=== PATIENT | male | born 2000 | race Two or more races ===

== ENCOUNTER 2023-10-10 14:39 | Emergency (ER) | payer BC, SELFPAY ==
[2023-10-10 14:40] VITALS: BP 144/84
--- NOTE | 2023-10-10 16:03 | ED.GENMED ---
History of Present Illness
General
Chief Complaint: Musculo-Skeletal Complaint
Time Seen by Provider: 10/10/23 15:07
Travel History
Have you had any contact with someone who has COVID-19?: No
Do you have any symptoms of coronavirus? Fever > 100 degrees, chills, cough, shortness of breath, sore throat, loss of taste or smell, muscle aches, or headache?: No
History of Present Illness
History of Present Illness:
33-year-old male presents the emergency department for evaluation of left bicep pain for the last 3 days, he states he had a vigorous workout prior to the onset of symptoms have not worked out much previously. He is unable to extend the left arm
fully.
Review of Systems
Review of Systems
Allergies reviewed?: Yes
All Other Systems: ROS reviewed and negative except as documented in HPI and ROS
Phy Exam
Physical Exam
Physical Exam:
GEN: Well appearing, NAD, WDWN
HEENT: Oral mucosa moist, no scleral icterus
Cardiac: Regular rate
Lung: No respiratory distress, no tachypnea
MSK: No gross deformity or injuries. Patient holds the left arm with the elbow flexed. There is no obvious sulcus or deformity of the left bicep. There is significant muscle tension when attempting to passively extend the elbow however I am able
to achieve near full extension, the muscle appears taut, left shoulder range of motion is normal, there is no crepitus to the left bicep
Skin: Good color, no pallor or jaundice, no rashes
Neuro: AO x3, moves all extremities freely
Psych: Calm, cooperative
Course
Orders/Labs/Results
Orders:
Orders
10/10/23 14:44
CR Elbow - Left Min 3 Views Urgent
Comment:
Reason For Exam: pain
Vital Signs
Initial and Last Documented VS:
Initial Vital Signs
Temp Pulse Resp BP Pulse Ox
98.5 F 88 20 144/84 100
10/10/23 14:40 10/10/23 14:40 10/10/23 14:40 10/10/23 14:40 10/10/23 14:40
Last Documented Vital Signs
Temp Pulse Resp BP Pulse Ox
98.5 F 88 20 144/84 100
10/10/23 14:40 10/10/23 14:40 10/10/23 14:40 10/10/23 14:40 10/10/23 14:40
MDM/Problems Addressed
MDM/Problems Addressed:
Nothing exam would suggest a bicep tendon rupture, likely severe strain, discussed supportive care
*Critical Care Note
Total Time (30-74mins, 75-104mins- exclusive of procedures): Not Applicable
ED Attending Note
-
Portions of this chart may have been created with voice recognition software.� Occasional wrong word or��sound alike� substitutions may have occurred due to the inherent limitations of voice recognition software.
Discharge Plan
Departure
Patient Disposition: Home (Routine Discharge)
Date of Disposition: 10/10/23
Time of Disposition: 16:03
Patient with high blood pressure during this ER visit?: No
Discharge Problem:
Strain of left biceps
Instructions: Muscle Strain (DC)
Referrals:
NONE,* [Family Provider] -
Activity Restrictions/Additional Instructions:
Alternate ice/heat frequently
Gently stretch the arm and attempt to extend fully
Avoid heavy lifting until your pain resolves
There is no evidence for a complete muscle tear at this time
Interventions
Interventions:
*Risk Screen - Suicide Last Done: 10/10/23 14:40
*General Assessment Last Done: 10/10/23 14:40
*Neglect/Abuse Screening Last Done: 10/10/23 14:40
ED- Fall Risk Assessment Last Done: 10/10/23 15:16
*Nursing Disposition Last Done: 10/10/23 16:08
ED-Musculoskeletal Assessment Last Done: 10/10/23 15:16
Discharge Date and Time
Discharge Date/Time: 10/10/23 16:09
Print Language: WELSH
== END 2023-10-10 16:09 | disposition home or self-care (01) ==
LOC: EMR 14:39
PROVIDERS: EMERGENCY PHYSICIAN Emergency Medicine
DX: S46.212A Strain of muscle, fascia and tendon of other parts of biceps, left arm, initial encounter (principal); X50.9XXA Other and unspecified overexertion or strenuous movements or postures, initial encounter; Y93.B9 Activity, other involving muscle strengthening exercises
CPT/HCPCS: 99283; 73080